=== PATIENT | female | born 1990 | race Caucasian/White ===

== ENCOUNTER → 2016-08-15 | Outpatient (CLI) | payer MEDICAID, OTHER ==
[~2016-08-15] MED LIST: CEFD300C3 PO; HYDR118S10 PO; NAPR-243 PO; PREN1TAB39 PO
--- NOTE | 2016-08-15 14:45 | Diagnostic Imaging Report ---
OB ultrasound. INDICATION: survey. No prior studies are available for comparison during this . FINDINGS: heart rate is 144 beats per minute of the single fetus seen. The placenta is posterior. No placenta previa. The cervix is 5.5 cm in length and is closed. There is no ventriculomegaly. The posterior fossa structures appear grossly unremarkable. The spine, the cord insertion, the urinary bladder, and the stomach appear unremarkable. No hydronephrosis or cystic mass at the level of the kidneys. The four-chamber view appears grossly unremarkable. Three-vessel cord is not well demonstrated due to position. The growth parameters are: Biparietal diameter: 18 weeks 4 days. Head circumference: 18 weeks 1 day. Abdominal circumference: 17 weeks 6 days. Femur length: 18 weeks 0 day. These average at: 18 weeks 1 day. This compares to 18 weeks 0 days gestational age based on [place] provided by Dr. Kasper of 01/16/2017. IMPRESSION: Short-term follow-up within 2-3 weeks is recommended to reevaluate the three-vessel cord and attempt better visualization of the four-chamber view. Dictated by: Dictated on workstation # [id number]
== END ==
LOC: RAD 10:07
PROVIDERS: ATTEND Obstetrics & Gynecology
DX: Z36 Encounter for antenatal screening of mother (principal); Z3A.18 18 weeks gestation of pregnancy
CPT/HCPCS: 76805

== ENCOUNTER → 2016-09-16 | Outpatient (CLI) | payer MEDICAID ==
--- NOTE | 2016-09-16 16:08 | Diagnostic Imaging Report ---
INDICATION: Follow-up incomplete survey for three-vessel view and four-chamber view. TECHNIQUE: Multiple real-time grayscale images were obtained over the gravid uterus. COMPARISON: 08/15/2016. FINDINGS: heart rate is 139 beats per minute. The placenta is posterior. No placenta previa. Two umbilical arteries are demonstrated around the bladder compatible with a three-vessel cord. The four-chamber view appears unremarkable. Amniotic fluid appears normal. IMPRESSION: Completed survey. Dictated by: Dictated on workstation # [id number]
== END ==
LOC: RAD 09:54
PROVIDERS: ATTEND Obstetrics & Gynecology
DX: Z36 Encounter for antenatal screening of mother (principal); Z3A.00 Weeks of gestation of pregnancy not specified
CPT/HCPCS: 76816

== ENCOUNTER → 2022-04-05 | Outpatient (CLI) | payer BC, MEDICAID ==
[~2022-04-05] MED LIST changes: +FERR-84 PO; +IBUP-1773 PO
--- NOTE | 2022-04-05 12:07 | Diagnostic Imaging Report ---
PROCEDURE: US PELVIC (NON OB) TECHNIQUE: Multiple real-time grayscale images were obtained over the pelvis in various projections transabdominally. INDICATION: Lower abdominal pain. FINDINGS: Transabdominal imaging only. The uterus measures 9.2 x 4.4 x 7.5 cm. Endometrial stripe is 4 mm. There is a slightly heterogeneous mass in the fundus of uterus measuring 2.5 cm. The right ovary measures 4.4 x 1.5 x 3.6 cm. Left ovary measures 3.2 x 1.9 x 1.8 cm. There is normal blood flow to both ovaries. There are no masses. There is a small amount of free fluid in the cul-de-sac. IMPRESSION: 1. Findings consistent with a uterine fibroid measuring 2.5 cm. 2. Small amount of fluid in the pelvis, likely physiologic or secondary to recently ruptured ovarian cyst. 3. An IUD is not demonstrated on this exam. Dictated by: Dictated on workstation # [id number]
== END ==
LOC: RAD 09:11
PROVIDERS: ATTEND Nurse Practitioner Family
DX: R10.32 Left lower quadrant pain (principal)
CPT/HCPCS: 76856